=== PATIENT | female | born 1995 | race Two or more races ===

== ENCOUNTER 2018-12-11 15:50 | Emergency (ER) | payer MEDICAID ==
[~2018-12-11] VITALS: Ht 165.1 cm; Wt 74.8 kg
[2018-12-11 16:57] LABS: Basophils # (auto) 0 uL; Basophils % (auto) 0.4 % (0.0-2.0); Eosinophils # (auto) 0.1 uL; Eosinophils % (auto) 0.7 % (0.0-7.0); Hematocrit 41.8 % (36.0-46.0); Hemoglobin 13.8 g/dL (12.2-16.2); Lymphocytes # (auto) 2.2 uL; Lymphocytes % (auto) 24.3 % (10.0-50.0); Mean Corpuscular Hemoglobin 30.6 pg (28.0-32.0); Mean Corpuscular Hgb Conc. 33.1 g/dL (32.0-36.0); Mean Corpuscular Volume 92.7 fL (80.0-100.0); Monocytes # (auto) 0.6 uL; Monocytes % (auto) 6.5 % (0.0-12.0); Neutrophils # (auto) 6.3 uL; Neutrophils % (auto) 68.1 % (37.0-80.0); Nucleated Red Blood Cells % 0.1 %; Platelet Count (auto) 275 10^3/uL (140-450); Red Blood Cells 4.51 10^6/uL (4.0-5.20); Red Cell Distribution Width 13.3 % (11.8-14.3); White Blood Cell 9.2 10^3/uL (4.4-10.8)
[2018-12-11 17:13] LABS: Anion Gap 8 (5-15); BUN/Creatinine Ratio 14.1; Blood Urea Nitrogen 11 mg/dL (7-18); Calcium 8.8 mg/dL (8.5-10.1); Carbon Dioxide 27 mmol/L (21-32); Chloride 105 mmol/L (98-107); GFR African American 117 mL/min; GFR Non-African American 96 mL/min; Glucose 89 mg/dL (74-106); Magnesium 2.1 mg/dL (1.6-2.6); Potassium 3.8 mmol/L (3.5-5.1); Sodium 140 mmol/L (136-145)
[2018-12-11 17:19] LABS: Alanine Aminotransferase 31 U/L (13-56); Alkaline Phosphatase 88 U/L (45-117); Aspartate Aminotransferase 18 U/L (15-37); Bilirubin, Total 0.5 mg/dL (0.2-1.0); Total Protein 8.5 g/dL (6.4-8.2)
[2018-12-11 23:09] VITALS: BP 127/68
== END 2018-12-11 23:11 | disposition home or self-care (01) ==
LOC: ER 15:55
DX: F41.9 Anxiety disorder, unspecified (principal); M79.602 Pain in left arm
CPT/HCPCS: 36415; 80053; 83735; 84484; 85025; 93005

== ENCOUNTER 2022-09-22 00:46 | Emergency (ER) | payer MEDICAID ==
[~2022-09-22] VITALS: Ht 162.6 cm; Wt 87.5 kg
[2022-09-22 01:40] VITALS: BP 144/69
[2022-09-22] MEDS ORDERED: BENZOCAINE (DENTAL) 20 % SPRAY 60ML MT ONE (04:30)
== END 2022-09-22 05:07 | disposition home or self-care (01) ==
LOC: ER 00:46
DX: S02.5XXA Fracture of tooth (traumatic), initial encounter for closed fracture (principal); K04.7 Periapical abscess without sinus; X58.XXXA Exposure to other specified factors, initial encounter; Y93.89 Activity, other specified; Y92.89 Other specified places as the place of occurrence of the external cause; Y99.8 Other external cause status

== ENCOUNTER 2024-05-20 12:53 | Emergency (ER) | payer MEDICAID ==
[~2024-05-20] VITALS: Ht 165.1 cm; Wt 94.4 kg
[2024-05-20 13:52] LABS: Basophils # (auto) 0.1 10 ^3/uL (0-0.2); Basophils % (auto) 1.1 % (0.0-2.0); Eosinophils # (auto) 0.1 10 ^3/uL (0-0.8); Hematocrit 40.5 % (36.0-46.0); Hemoglobin 13.9 g/dL (12.2-16.2); Lymphocytes # (auto) 2.7 10 ^3/uL (0.4-5.4); Mean Corpuscular Hemoglobin 31.2 pg (28.0-32.0); Mean Corpuscular Hgb Conc. 34.3 g/dL (32.0-36.0); Mean Corpuscular Volume 90.8 fL (80.0-100.0); Monocytes # (auto) 0.6 10 ^3/uL (0-1.3); Monocytes % (auto) 6.6 % (0.0-12.0); Neutrophils % (auto) 59.3 % (37.0-80.0); Nucleated Red Blood Cells % 0.1 %; Red Blood Cells 4.46 10^6/uL (4.0-5.20); White Blood Cell 8.5 10^3/uL (4.4-10.8)
[2024-05-20 13:55] LABS: Urine Bacteria FEW /hpf (None Seen); Urine Blood Negative /uL (Negative); Urine Clarity Turbid (Clear); Urine Color Colorless (Yellow); Urine Protein, UAD Negative (Negative); Urine Specific Gravity 1.005 (1.001-1.035); Urine Urobilinogen Normal (Negative); Urine WBC 1 /hpf (0 - 5)
[2024-05-20 14:02] LABS: Chloride 105 mmol/L (98-107); Potassium 4.4 mmol/L (3.5-5.1); Sodium 138 mmol/L (136-145)
[2024-05-20 14:03] LABS: Anion Gap 5 (5-15); Carbon Dioxide 28 mmol/L (20-30)
[2024-05-20 14:04] LABS: Calcium 10.3 mg/dL (8.7-10.4)
[2024-05-20 14:08] LABS: BUN/Creatinine Ratio 9.7 (10.0-20.0); Blood Urea Nitrogen 6 mg/dL (9-23); Glucose 96 mg/dL (74-106)
[2024-05-20] MEDS: MECLIZINE HCL 25 MG TAB PO ONE (14:24)
[2024-05-20] MEDS ORDERED: MECL1TAB42 PO (15:49)
[2024-05-20] MEDS ORDERED: CEPH500T PO (15:49)
[2024-05-20] MEDS: cefTRIAXone SOD 1,000 MG VL IM ONE (16:16)
[2024-05-20 16:29] VITALS: BP 136/66; PULSE 72; RESP 16; TEMP 97.7; O2SAT 96
== END 2024-05-20 16:33 | disposition home or self-care (01) ==
LOC: ER 12:53
DX: N39.0 Urinary tract infection, site not specified (principal); R10.2 Pelvic and perineal pain; R42 Dizziness and giddiness; F41.9 Anxiety disorder, unspecified; Z86.2 Personal history of diseases of the blood and blood-forming organs and certain disorders involving the immune mechanism
CPT/HCPCS: 36415; 70450; 80048; 81001; 84702; 85025; 96372; 99285; J0696; J8597